=== PATIENT | male | born 1990 | race Hispanic/Latino ===

== ENCOUNTER 2016-07-19 17:14 | Emergency (ER) | payer OTHER ==
[2016-07-19] MEDS ORDERED: NACL 0.9% 1000 ML 1,000 ML ONE (18:17)
[2016-07-19] MEDS ORDERED: ATIVAN IV ONE (18:28)
[2016-07-19] MEDS ORDERED: NACL 0.9% 1000 ML 1,000 ML IV ONE ×2 (18:28→21:48)
--- NOTE | 2016-07-19 18:28 | Emergency Department Report ---
ED General Adult HPI - General Chief complaint: Syncope Stated complaint: SYNCOPE/SYNTHETIC MARIJUANA USE/ETOH Time Seen by Provider: 07/19/16 18:22 Source: patient, EMS Mode of arrival: Stretcher Limitations: No Limitations - History of Present Illness Initial comments: 26-year-old male with history of depression and anxiety presenting today because of syncopal episode. Patient states he has been feeling depressed lately and had drank some water thought, and then purchase some synthetic marijuana and after [place] She denies any symptoms beforehand. He currently just feels anxious but does not have any other specific complaints. When asked about if he was trying to hurt himself by taking these drugs and alcohol he admits that he does think he was trying to hurt himself. He has attempted overdose or drugs in the past. He is not on any psychiatric medications. He does also have a history of narcotic abuse which he states is usually Percocet. States he has not had any Percocet in the last few weeks and he does not use any IV drugs. - Related Data Home Medications Medication Instructions Recorded Confirmed Last Taken No Known Home Medications [No 07/19/16 07/19/16 Unknown Reported Home Medications] Allergies Allergy/AdvReac Type Severity Reaction Status Date / Time No Known Allergies Allergy Unverified 07/19/16 18:02 ED Review of Systems ROS: Stated complaint: SYNCOPE/SYNTHETIC MARIJUANA USE/ETOH Other details as noted in HPI Comment: All other systems reviewed and negative Constitutional: denies: chills, fever ENT: denies: throat pain Respiratory: denies: cough Cardiovascular: denies: chest pain, palpitations Gastrointestinal: denies: nausea, vomiting Genitourinary: denies: dysuria Skin: denies: rash Neurological: denies: headache Psychiatric: anxiety, depression, suicidal thoughts ED Past Medical Hx - Past Medical History Previous Medical History?: No - Surgical History Past Surgical History?: Yes Additional Surgical History: right wrist - Social History Smoking Status: Current Every Day Smoker Substance Use Type: Alcohol - Medications Home Medications: Home Medications Medication Instructions Recorded Confirmed Last Taken Type No Known Home Medications [No 07/19/16 07/19/16 Unknown History Reported Home Medications] ED Physical Exam - General Limitations: No Limitations General appearance: alert, in no apparent distress - Head Head exam: Present: atraumatic - Eye Eye exam: Present: normal appearance - Respiratory Respiratory exam: Present: normal lung sounds bilaterally. Absent: respiratory distress - Cardiovascular Cardiovascular Exam: Present: normal rhythm, tachycardia - GI/Abdominal GI/Abdominal exam: Present: soft. Absent: distended, tenderness - Neurological Exam Neurological exam: Present: alert, oriented X3 - Psychiatric Psychiatric exam: Present: anxious ED Course Vital Signs 07/19/16 07/19/16 07/19/16 18:02 18:08 19:10 Temperature 99.0 F 99.7 F H 99.0 F Pulse Rate 135 H 126 H Respiratory 18 20 Rate Blood Pressure 118/70 Blood Pressure 118/70 [Left] O2 Sat by Pulse 98 95 Oximetry 07/19/16 07/19/16 07/19/16 19:17 19:30 20:00 Temperature Pulse Rate 123 H 123 H 128 H Respiratory 22 20 13 Rate Blood Pressure 107/54 110/54 Blood Pressure [Left] O2 Sat by Pulse 96 94 95 Oximetry 07/19/16 07/19/16 07/19/16 20:30 21:00 21:30 Temperature Pulse Rate 116 H 111 H 112 H Respiratory 19 19 18 Rate Blood Pressure 97/52 107/55 103/56 Blood Pressure [Left] O2 Sat by Pulse 95 96 95 Oximetry 07/19/16 07/19/16 07/19/16 22:00 22:30 23:00 Temperature Pulse Rate 114 H 114 H 109 H Respiratory 17 14 10 L Rate Blood Pressure 109/56 103/52 100/51 Blood Pressure [Left] O2 Sat by Pulse 96 97 97 Oximetry 07/19/16 23:30 Temperature Pulse Rate 105 H Respiratory 17 Rate Blood Pressure 105/49 Blood Pressure [Left] O2 Sat by Pulse 95 Oximetry ED Medical Decision Making - Lab Data Result diagrams: 07/19/16 18:19 07/19/16 18:19 - Medical Decision Making IV, labs, IV fluids, Ativan EKG shows sinus tachycardia at a rate of 134, no ST-T changes, normal axis Patient's sister came bedside and explained that the patient had actually attempted to jump off the bridge in a suicide attempt. He also attempted to hang himself earlier this year as well as to overdose on sleeping medication earlier this year. He does not have any history of suicidal ideations or attempts prior to this year. 1013 hold was placed on the patient and psych was consulted. Labs showed mild hypophosphatemia, by mouth phosphate was ordered EKG and monitor not very concerning for cardiac cause of syncope Critical care attestation.: If time is entered above; I have spent that time in minutes in the direct care of this critically ill patient, excluding procedure time. ED Disposition Clinical Impression: Suicidal ideation Disposition: DC/TX PSY HOSP/PSY UNIT Is pt being admited?: No Does the pt Need Aspirin: No Condition: Serious Referrals: PRIMARY CARE, [Primary Care Provider] - 3-5 Days
[2016-07-19 18:39] LABS: Basophils % (Auto) 0.4 % (0.0-1.8); Eosinophils % (Auto) 0.4 % (0.0-4.3); Hemoglobin 14.4 gm/dl (11.8-15.2); Mean Corpuscular HGB Conc 34 % (32-34); Mean Corpuscular Hemoglobin 31 pg (28-32); Mean Corpuscular Volume 91 fl (84-94); Platelet Count 248 K/mm3 (140-440); Red Blood Count 4.73 M/mm3 (3.65-5.03); Red Cell Distribution Width 13.4 % (13.2-15.2); White Blood Count 14.6 K/mm3 (4.5-11.0)
[2016-07-19 18:56] LABS: Anion Gap 18 mmol/L; BUN/Creatinine Ratio 14.16; Blood Urea Nitrogen 17 mg/dL (9-20); Calcium 8.8 mg/dL (8.4-10.2); Carbon Dioxide 25 mmol/L (22-30); Chloride 104.7 mmol/L (98-107); Glucose 105 mg/dL (75-100); Potassium 4.5 mmol/L (3.6-5.0); Sodium 143 mmol/L (137-145)
[2016-07-19 19:12] LABS: Magnesium 1.8 mg/dL (1.7-2.3); Phosphorous 2.1 mg/dL (2.5-4.5)
[2016-07-19] MEDS ORDERED: K-PHOS NEUTRAL PO ONE (19:26)
[2016-07-19 21:08] LABS: Urine Drugs of Abuse Note Disclamer
[2016-07-19 21:19] LABS: Bilirubin,Urine NEG (Negative); Blood,Urine NEG (Negative); Ketones,Urine NEG (Negative); Leukocyte Esterase,Urine NEG (Negative); Mucus,Urine FEW /HPF; Nitrite,Urine NEG (Negative); Protein,Urine <15 mg/dL mg/dL (Negative); RBC,Urine < 1.0 /HPF (0.0-6.0); Urobilinogen,Urine < 2.0 mg/dL (<2.0)
[2016-07-20] MEDS ORDERED: ATIVAN PO ONE (00:15)
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
--- NOTE | 2016-07-21 10:59 | Progress Note ---
Subjective - Reason for Consult Consult date: 07/21/16 Reason for consult: Psychiatry Follow-up - Chief Complaint Chief complaint: 26-year-old male with history of depression and anxiety presenting today because of syncopal episode. Today patient is calm and cooperative with a linear thought process. He stated that he smoked some synthetic marijuana and "fainted." He stated that the suicidal thoughts and ideations has been an issue for him for over a year now. Per the patient he smoked the synthetic marijuana to "cope" with life issues. He stated that he has "no reason to live" and still feel suicidal. He stated that he tried to kill himself in the past by overdosing on pills, also tried hanging himself. He could not tell me why he feels this way now or in the past. He stated that he went to the [facility] and was prescribed Celexa. He stated that his mood was "up and down" when taking Celexa, so he stopped taking it. Patient denies HI's, AVH's, or a poor appetite. He stated that he have a problem going to sleep and rate his anxiety/ depression 6/10, with 10 being the worse. His UDS is negative. Patient stated that he has hx of taking pills (opiates). Mental Status Exam - Vital signs Last Vital Signs Temp 98.8 F 07/21/16 08:23 Pulse 79 07/21/16 08:23 Resp 16 07/21/16 08:23 BP 119/79 07/21/16 08:23 Pulse Ox 100 07/21/16 08:23 - Exam Narrative exam: MSE: Appearance: cooperative, calm Behavior: poor eye contact Speech: regular rate and tone Mood: "depressed" Affect: flat Thought Process: linearl Thought Content: denies HI's and AVH's Motor Activity: ambulatory Cognition: a/ox 3 Insight: fair Judgment: fair Assessment and Plan Impression: 26-year-old male with history of depression and anxiety presenting today because of syncopal episode. Today patient is calm and cooperative with a linear thought process. He stated that he smoked some synthetic marijuana and "fainted." He stated that the suicidal thoughts and ideations has been an issue for him for over a year now. Per the patient he smoked the synthetic marijuana to "cope" with life issues. He stated that he has "no reason to live" and still feel suicidal. He stated that he tried to kill himself in the past by overdosing on pills, also tried hanging himself. Recommendation/Plan: Continue 1013 with placement to inpatient psy services. Start Zoloft 50 mg PO daily for depression and Vistaril 25 mg PO TID for anxiety. Discussed possible suicidality and medication induced jf with patient reference antidepressants.
[2016-07-21] MEDS: ZOLOFT PO SCH (18:14)
[2016-07-21] MEDS: VISTARIL PO SCH (20:25)
[2016-07-22] MEDS: VISTARIL PO SCH ×3 (08:51→20:50)
--- NOTE | 2016-07-22 09:21 | Progress Note ---
Subjective - Reason for Consult Consult date: 07/22/16 Reason for consult: Psychiatry Follow-up - Chief Complaint Chief complaint: "I feel better" 26-year-old male with history of depression and anxiety presenting today because of syncopal episode. Today patient is calm and cooperative with a linear thought process. He stated that he feels better than yesterday. He stated that he still have suicidal thoughts, but they have decreased. He rate his depression/anxiety 3/10, with 10 being the worse. During my assessment, I noticed that patient has a foul body order. He denies HI's, AVH's, or sleep disturbance at this time. Patient denies any side effects from his psy medication. Mental Status Exam - Vital signs Last Vital Signs Temp 98.4 F 07/22/16 08:11 Pulse 84 07/22/16 08:11 Resp 22 07/22/16 08:11 BP 123/84 07/22/16 08:11 Pulse Ox 100 07/22/16 08:11 - Exam Narrative exam: MSE: Appearance: cooperative, calm, foul body order Behavior: poor eye contact Speech: regular rate and tone Mood: "I feel a little better" Affect: flat Thought Process: linear Thought Content: denies HI's and AVH's Motor Activity: ambulatory Cognition: a/ox 3 Insight: fair Judgment: fair Assessment and Plan Impression: 26-year-old male with history of depression and anxiety presenting today because of syncopal episode. Today patient is calm and cooperative with a linear thought process. He stated that he feels better than yesterday. He stated that he still have suicidal thoughts, but they have decreased. He rate his depression/anxiety 3/10, with 10 being the worse. Recommendation/Plan: Continue 1013 with placement to inpatient psy services. Continue Zoloft 50 mg PO daily for depression and Vistaril 25 mg PO TID for anxiety. Discussed possible suicidality and medication induced jf with patient reference antidepressants. Encouraged patient to take shower.
[2016-07-22] MEDS: ZOLOFT PO SCH (10:23)
[2016-07-23] MEDS: VISTARIL PO SCH ×3 (08:16→20:28)
[2016-07-23] MEDS: ZOLOFT PO SCH (10:19)
--- NOTE | 2016-07-23 12:46 | Progress Note ---
Subjective - Reason for Consult Consult date: 07/23/16 Reason for consult: psychiatric follow up - Chief Complaint Chief complaint: "I"m alright" 26-year-old male with history of depression and anxiety presenting today because of syncopal episode. Today patient is calm and cooperative with a linear thought process. He stated that he still has suicidal thoughts, but they have decreased. No AVH. No HI. Patient denies any side effects from his psy medication. Mental Status Exam - Vital signs Last Vital Signs Temp 98.5 F 07/23/16 07:42 Pulse 67 07/23/16 07:42 Resp 16 07/23/16 07:42 BP 124/85 07/23/16 07:42 Pulse Ox 100 07/23/16 07:42 - Exam Narrative exam: MSE: Appearance: cooperative, calm Behavior: poor eye contact Speech: regular rate and tone Mood: depressed Affect: flat Thought Process: linear Thought Content: denies HI's and AVH's Motor Activity: ambulatory Cognition: a/ox 3 Insight: fair Judgment: fair Assessment and Plan Impression: 26-year-old male with history of depression and anxiety presenting today because of syncopal episode. Today patient is calm and cooperative with a linear thought process. Continues to have SI. Recommendation/Plan: Continue 1013 with placement to inpatient psy services. Continue Zoloft 50 mg PO daily for depression and Vistaril 25 mg PO TID for anxiety.
--- NOTE | 2016-07-24 08:44 | Progress Note ---
Subjective - Reason for Consult Consult date: 07/24/16 Reason for consult: Psychiatry Follow-up - Chief Complaint Chief complaint: "I feel okay" 26-year-old male with history of depression and anxiety presenting today because of syncopal episode. Today patient is calm and cooperative with a linear thought process. He stated that his SI's and racing thoughts are "gone." He denies SI/HI's, AVH's, or depression symptoms. He stated that he feel constipated. Mental Status Exam - Vital signs Last Vital Signs Temp 98.5 F 07/23/16 07:42 Pulse 67 07/23/16 07:42 Resp 16 07/23/16 07:42 BP 124/85 07/23/16 07:42 Pulse Ox 100 07/23/16 07:42 - Exam Narrative exam: MSE: Appearance: cooperative, calm Behavior: good eye contact Speech: regular rate and tone Mood: "I feel better" Affect: congruent to mood Thought Process: linear Thought Content: denies SI/HI's and AVH's Motor Activity: ambulatory Cognition: a/ox 3 Insight: fair Judgment: fair Assessment and Plan Impression: 26-year-old male with history of depression and anxiety presenting today because of syncopal episode. Today patient is calm and cooperative with a linear thought process. He stated that his SI's and racing thoughts are "gone." He denies SI/HI's and AVH's. Recommendation/Plan: Evaluate 1013 in 24 hours to determine dispo. Continue Zoloft 50 mg PO daily for depression and Vistaril 25 mg PO TID for anxiety. Discussed possible suicidality and medication induced jf with patient reference antidepressants. Miralax ordered once for constipation.
[2016-07-24] MEDS ORDERED: MIRALAX 3350 PO ONE (09:30)
[2016-07-24] MEDS: ZOLOFT PO SCH (10:13)
[2016-07-24] MEDS: VISTARIL PO SCH ×3 (10:14→21:55)
[2016-07-24] MEDS: COLACE PO SCH (22:15)
--- NOTE | 2016-07-25 09:09 | Progress Note ---
Subjective - Reason for Consult Consult date: 07/25/16 Reason for consult: Psychiatry Follow-up - Chief Complaint Chief complaint: "I feel okay" 26-year-old male with history of depression and anxiety presenting today because of syncopal episode. Today patient is calm and cooperative with a linear thought process. He stated that he has done some thinking and would like his life to change. He wants to get a job and stay off the street drugs. He rate his anxiety 2/10, with 10 being the worse. He denies SI/HI's, AVH's, or depression symptoms. Mental Status Exam - Vital signs Last Vital Signs Temp 98 F 07/24/16 20:09 Pulse 83 07/25/16 03:36 Resp 18 07/24/16 20:09 BP 135/83 07/25/16 03:36 Pulse Ox 96 07/24/16 20:09 - Exam Narrative exam: MSE: Appearance: cooperative, calm Behavior: good eye contact Speech: regular rate and tone Mood: "not a bad day" Affect: congruent to mood Thought Process: linear Thought Content: denies SI/HI's and AVH's Motor Activity: ambulatory Cognition: a/ox 3 Insight: fair Judgment: fair Assessment and Plan Impression: 26-year-old male with history of depression and anxiety presenting today because of syncopal episode. Today patient is calm and cooperative with a linear thought process. He stated that he have done some thinking and would like his life to change. He wants to get a job and stay off the street drugs. He denies SI/HI's and AVH's. Recommendation/Plan: Pending [facility] transfer. Continue Zoloft 50 mg PO daily for depression and Vistaril 25 mg PO TID for anxiety. Discussed possible suicidality and medication induced jf with patient reference antidepressants. Called his mother Mel Glass [phone] to get collateral information (left voicemail to return my call).
[2016-07-25] MEDS: COLACE PO SCH (10:31)
[2016-07-25] MEDS: ZOLOFT PO SCH (10:31)
[2016-07-25] MEDS: VISTARIL PO SCH (10:31)
[2016-07-25 12:20] VITALS: BP 141/87
== END 2016-07-25 13:00 ==
LOC: EEVIPCON 17:14 → ED 17:14
DX: R45.851 Suicidal ideations (principal); F17.200 Nicotine dependence, unspecified, uncomplicated
CPT/HCPCS: 36415; 80048; 80307; 81001; 83735; 84100; 85025; 93005; 93010; 96361; 96374; 99285; G0480; J2060; J7030; 80320; Q0177